=== PATIENT | female | born 1980 | race Hispanic/Latino ===

== ENCOUNTER 2016-09-20 09:54 | Emergency (ER) | payer OTHER ==
[~2016-09-20] VITALS: Ht 160 cm; Wt 104.4 kg
[2016-09-20] MEDS ORDERED: PERCOCET 5/31 TABLET PO (12:23)
[2016-09-20 12:57] VITALS: BP 139/71
== END 2016-09-20 12:58 | disposition home or self-care (01) ==
LOC: TRA 09:54
DX: S20.229A Contusion of unspecified back wall of thorax, initial encounter (principal); S00.03XA Contusion of scalp, initial encounter; M54.2 Cervicalgia; R10.9 Unspecified abdominal pain; W11.XXXA Fall on and from ladder, initial encounter; Y99.0 Civilian activity done for income or pay
CPT/HCPCS: 70450; 72125; 72128; 72131; 99281; 99284